=== PATIENT | female | born 1980 | race Caucasian/White ===

== ENCOUNTER 2018-09-14 13:04 | Emergency (ER) | payer MEDICAID ==
[~2018-09-14] VITALS: Ht 160 cm; Wt 104.8 kg
[2018-09-14 13:10] VITALS: Ht 160 cm; Wt 104.8 kg
[2018-09-14 13:40] VITALS: BP 146/95
== END 2018-09-14 13:40 | disposition home or self-care (01) ==
LOC: ED 13:04
DX: K59.00 Constipation, unspecified (principal); E03.9 Hypothyroidism, unspecified; Z76.0 Encounter for issue of repeat prescription

== ENCOUNTER 2019-05-29 14:10 | Emergency (ER) | payer OTHER ==
[~2019-05-29] VITALS: Ht 160 cm; Wt 107.0 kg
[2019-05-29 14:15] VITALS: Ht 160 cm; Wt 107.0 kg
[2019-05-29 16:43] LABS: BASOPHIL % 0.9 % (0-2); PLATELET COUNT 259 x10^3mcL (130-400); RED CELL DISTRIBUTION WIDTH 14.5 % (11.5-14.5)
[2019-05-29 16:52] LABS: CALCIUM 8.2 mg/dL (8.5-10.1); CARBON DIOXIDE 27.2 mmol/L (21-32); CHLORIDE SERUM 103 mmol/L (98-107); CREATININE SERUM 0.8 mg/dL (0.6-1.0); GFR1 > 60 mL/min; GLUCOSE SERUM 100 mg/dL (74-106); POTASSIUM SERUM 3.4 mmol/L (3.5-5.1); SODIUM SERUM 139 mmol/L (136-145)
[2019-05-29 16:58] LABS: ALBUMIN 3.6 g/dL (3.4-5.0); ALKALINE PHOSPHATASE 90 U/L (46-116); ALT/SGPT 13 U/L (14-59); AST/SGOT 19 U/L (15-37); BILIRUBIN TOTAL 0.24 mg/dL (0.20-1.00); TOTAL PROTEIN, SERUM 7.3 g/dL (6.4-8.2)
[2019-05-29 17:04] LABS: FREE T4 0.97 ng/dL (0.76-1.46); FREE THYROXINE INDEX 2.6 ug/dL (1.4-4.5); T4(THYROXINE) 7.6 ug/dL (4.7-13.3)
[2019-05-29 18:40] LABS: T3 TOTAL 0.75 ng/mL
[2019-05-29 18:53] VITALS: BP 138/76
== END 2019-05-29 19:08 | disposition home or self-care (01) ==
LOC: ED 14:10
PROVIDERS: Emergency Medicine
DX: R07.89 Other chest pain (principal); R51 Headache; H53.8 Other visual disturbances; R42 Dizziness and giddiness; E03.9 Hypothyroidism, unspecified; Z90.49 Acquired absence of other specified parts of digestive tract; Z98.890 Other specified postprocedural states; Z88.1 Allergy status to other antibiotic agents
CPT/HCPCS: 36415; 84439; 85378; 87804; Q0092